=== PATIENT | female | born 1995 | race African-American/Black ===

== ENCOUNTER 2016-10-07 21:24 | Emergency (ER) | payer SELFPAY ==
[~2016-10-07] VITALS: Ht 165.1 cm; Wt 129.1 kg
[2016-10-07] MEDS ORDERED: ACETAMINOPHEN 500 MG TABLET PO ONE (23:00)
[2016-10-07] MEDS ORDERED: DEXAMETHASONE 4 MG TABLET PO ONE ×2 (23:00)
[2016-10-07] MEDS ORDERED: SODIUM CHLORIDE 0.9% 1,000 ML IV ONE (23:00)
[2016-10-07] MEDS ORDERED: KETOROLAC TROMETHAMINE 30 MG/ML VIAL IVP ONE (23:00)
[2016-10-07 23:49] LABS: INFLUENZA TYPE B NEGATIVE FOR TYPE B (NEGATIVE)
[2016-10-08 01:00] VITALS: BP 120/60
== END 2016-10-08 01:12 | disposition home or self-care (01) ==
LOC: EMS 21:26
DX: J02.9 Acute pharyngitis, unspecified (principal); R03.0 Elevated blood-pressure reading, without diagnosis of hypertension; H92.03 Otalgia, bilateral
CPT/HCPCS: 36415; 84703; 86308; 87430; 87804; 96361; 96374; 99284; J1885; J7030; J8540